=== PATIENT | female | born 1955 | race Caucasian/White ===

== ENCOUNTER 2023-11-13 18:05 | Emergency (ER) | payer OTHER ==
[~2023-11-13] VITALS: Ht 162.6 cm; Wt 109.0 kg
[2023-11-13] MEDS: HYDROmorphone HCL 2 MG/ML VL/or syr IV ONE (21:37)
[2023-11-13 21:39] VITALS: TEMP 97.5
[2023-11-13] MEDS: ONDANSETRON ODT 4 MG TAB PO ONE (22:59)
[2023-11-14] MEDS ORDERED: IBUP-1455 PO (00:32)
[2023-11-14] MEDS ORDERED: HYDR-4798 PO (00:32)
[2023-11-14] MEDS: HYDROmorphone HCL 2 MG/ML VL/or syr IV ONE (01:08)
[2023-11-14 01:19] VITALS: BP 177/83; PULSE 70; RESP 20; O2SAT 95
[2023-11-14] MEDS: ONDANSETRON ODT 4 MG TAB PO ONE (01:35)
== END 2023-11-14 05:17 | disposition home or self-care (01) ==
LOC: ER 18:05 → EDBD 18:05 → ER 11-14 02:15
DX: S72.432A Displaced fracture of medial condyle of left femur, initial encounter for closed fracture (principal); R07.81 Pleurodynia; I10 Essential (primary) hypertension; E11.9 Type 2 diabetes mellitus without complications; Z95.0 Presence of cardiac pacemaker; W01.0XXA Fall on same level from slipping, tripping and stumbling without subsequent striking against object, initial encounter; Y93.89 Activity, other specified; Y92.89 Other specified places as the place of occurrence of the external cause; Y99.8 Other external cause status
CPT/HCPCS: 71250; 73560; 73700; 99285; J1170; Q0162

== ENCOUNTER 2025-08-09 08:15 | Outpatient (CLI) | payer OTHER ==
[~2025-08-09] VITALS: Ht 152.4 cm; Wt 113.4 kg
[~2025-08-09 08:15] MED LIST: HYDR-4798 PO; IBUP-1455 PO
[2025-08-09] MEDS: REGADENOSON 0.4 MG/5 ML SYRG IV ONE ×2 (08:42→09:59)
--- NOTE | 2025-08-13 12:07 | DVHSR ---
APPROVED REPORT Exam: Nuclear Stress Test BMI: 0 Stress Test Details Stress Test: Pharmacologic stress testing performed using 0.4 mg of regadenoson per 5 mL given IV over 10 seconds. HR Resting HR: 83 bpm Max Heart Rate (APMHR): 151.553388 bpm Max HR Achieved: 88 bpm Target HR (85% APMHR): 128.403989 bpm % of APMHR: 58.28 Recovery HR: 80 bpm BP Resting BP: 196/93 mmHg Recovery BP: 166/76 mmHg ECG Resting ECG: Sinus Rhythm Clinical Reason for Termination: Completed protocol Nurse Comments Recieved pt. from [employer]. A/Ox4 on RA. Connected to shop clerk, VS stable. PIV flushes well. Reviewed POC. Pt. verbalized understanding of procedure including risks and side effects, agrees for stress testing. Lexiscan stress test performed per protocol. [employer] tech administered Cardiolite. Pt. tolerated well. Pt. stable, no change on exam. VS returned to baseline. Transferred to [employer] via wheelchair w/ tech. Stress ECG Conclusion lvef 68% normal perfusion scan no ischemia NM EXAM: Myocardial Perfusion REST/STRESS Imaging Protocol: Rest Tc-99m/Stress Tc-99m 1 day Resting Data Rest SPECT myocardial perfusion imaging was performed in supine position 60 minutes following the intravenous injection of 10.1 mCi of Tc-99m Sestamibi. Time of rest injection: 08:45 Date: 08/09/2025 Time of rest imagin:45 Date: 08/09/2025 Administration Route: IV Administration Site: Left Arm Pharmacologic Stress Pharmacologic stress test was performed by injecting Regadenoson 0.4 mg IV push followed by the intravenous injection of 30.1 mCi of Tc-99m Sestamibi. Time of stress injection: 10:00 Date: 08/09/2025 Time of stress imagin:00 Date: 08/09/2025 Administration Route: IV Administration Site: Left Arm Gated Stress SPECT was performed 60 minutes after stress injection. The images were gated to evaluate regional wall motion and calculate left ventricular ejection fraction. Stress only was performed in the Supine position. Nuclear Conclusion Nuclear Findings: negative for ischemia lvef 68% normal perfusion scan no ischemia
== END 2025-08-09 17:00 | disposition home or self-care (01) ==
LOC: XYW 08:15
PROVIDERS: ATTEND Specialist
DX: R06.02 Shortness of breath (principal); R07.9 Chest pain, unspecified
CPT/HCPCS: 78452; 93017; A9500; J2785